=== PATIENT | female | born 1995 | race African-American/Black ===

== ENCOUNTER 2018-07-21 21:56 | Emergency (ER) | payer OTHER ==
[~2018-07-21] VITALS: Ht 167.6 cm; Wt 63.0 kg
[2018-07-21] MEDS ORDERED: SODIUM CHLORIDE 0.9% 1,000 ML IV ONE (22:07)
[2018-07-21] MEDS ORDERED: ONDANSETRON HCL 4MG/2ML INJ IV ONE (22:15)
[2018-07-21] MEDS ORDERED: ACTIVATED CHARCOAL 50 G/240 ML TUBE PO ONE (22:45)
[2018-07-21] MEDS ORDERED: DEXT 5% IV SCH (23:00)
[2018-07-21] MEDS ORDERED: ACETYLCYSTEINE IV SCH (23:00)
[2018-07-21] MEDS ORDERED: WATER IV SCH (23:00)
[2018-07-21 23:28] LABS: BASOPHILS % 0.5 % (0.0-2.0); EOSINOPHILS % 1.2 % (0.0-5.0); HEMATOCRIT. 43.9 % (36.0-48.0); HEMOGLOBIN. 15.1 g/dL (12.0-16.0); LYMPHOCYTES % 26.7 % (20.0-50.0); MEAN CORPUSCULAR HEMOGLOBIN 30.4 pg (28.0-32.0); MEAN CORPUSCULAR VOLUME 88.8 fL (81.0-99.0); MONOCYTES % 8.8 % (2.0-8.0); NEUTROPHILS % 62.8 % (40.0-76.0); PLATELET 259 x1000/uL (130-400); RED BLOOD CELL COUNT 4.95 mill/uL (4.2-5.4); RED CELL DISTRIBUTION WIDTH 13.1 % (11.6-14.6)
[2018-07-21 23:32] LABS: CHLORIDE 107 mEq/L (98-107)
[2018-07-21 23:35] LABS: PARTIAL THROMBOPLASTIN TIME 28.8 sec (23.4-31.0)
[2018-07-21 23:36] LABS: ETHANOL BLOOD < 10 mg/dL
[2018-07-22] MEDS ORDERED: ACETYLCYSTEINE IV SCH ×2
[2018-07-22] MEDS ORDERED: WATER IV SCH ×2
[2018-07-22] MEDS ORDERED: DEXT 5% IV SCH ×2
[2018-07-22 00:31] LABS: *AMPHETAMINES SCREEN URINE NEGATIVE (NEGATIVE); *BARBITURATES SCREEN URINE NEGATIVE (NEGATIVE); *BENZODIAZEPINES SCREEN URINE NEGATIVE (NEGATIVE)
[2018-07-22 00:32] LABS: *COCAINE SCREEN URINE NEGATIVE (NEGATIVE); METHADONE URINE SCREEN NEGATIVE (NEGATIVE); OPIATES URINE SCREEN NEGATIVE (NEGATIVE)
[2018-07-22 00:33] LABS: CANNABINOID URINE SCREEN NEGATIVE (NEGATIVE); PHENCYCLIDINE URINE SCREEN NEGATIVE (NEGATIVE)
[2018-07-22 03:50] VITALS: BP 109/59
== END 2018-07-22 03:51 ==
LOC: ER 21:56 → EDBEDREQ 23:48 → EDBEDREQTM 23:48 → CANRESERV 07-22 01:29 → ENRESERV 07-22 01:29 → CANBEDREQ 07-22 03:41 → ER 07-22 03:51
DX: T39.1X2A Poisoning by 4-Aminophenol derivatives, intentional self-harm, initial encounter (principal); F32.3 Major depressive disorder, single episode, severe with psychotic features; Z63.79 Other stressful life events affecting family and household; Y92.098 Other place in other non-institutional residence as the place of occurrence of the external cause
CPT/HCPCS: 36415; 80053; 80305; 80307; 80329; 81025; 83690; 83735; 85025; 85610; 85730; 93005; 96365; 96366; 96375; 99291; G0482; J0132; J2405; J7030; J7060